=== PATIENT | male | born 1965 | race Caucasian/White ===

== ENCOUNTER 2017-10-21 07:25 | Emergency (ER) | payer MEDICARE, MEDICAID ==
[~2017-10-21] VITALS: Ht 172.7 cm; Wt 75.0 kg
[2017-10-21 07:30] VITALS: BP 154/87; PULSE 82; RESP 16; TEMP 97; O2SAT 100
[2017-10-21] MEDS ORDERED: CYCL10TA PO (07:44)
[2017-10-21] MEDS ORDERED: IBUP1TAB7 PO (07:44)
--- NOTE | 2017-10-21 07:44 | PD ---
HPI Chief Complaint: Back/ Neck Pain or Injury Time Seen by Provider: 07:36 Travel History International Travel<30 days: No Contact w/Intl Traveler<30days: No Traveled to known affect area: No History of Present Illness HPI Patient is a 52-year-old male presenting to the emergency department for evaluation of low back pain. Patient states he was walking down the stairs carrying an object this morning when he tripped, tweaking his back. He did not fall onto his back. He is ambulatory. He denies any numbness, tingling, weakness. He denies any bladder or bowel incontinence, no saddle paresthesia. Patient has not taken any medications to alleviate the pain. He states the incident occurred a few hours ago. Symptom onset was sudden, symptoms are mild in nature. There are no alleviating factors however patient has not done anything to alleviate his symptoms prior to coming to the emergency department. [facility] Past Medical History Arthritis: Yes Social History Tobacco Use: No Review of Systems Except as stated in HPI: all other systems reviewed are Neg Musculoskeletal: Positive: Myalgias, Cramping Physical Exam Narrative GENERAL: Well-developed, well-nourished, alert male. Presenting in no acute distress. SKIN: Warm and dry. HEAD: Atraumatic. Normocephalic. EYES: Pupils equal and round. No scleral icterus. No injection or drainage. ENT: No nasal bleeding or discharge. Mucous membranes pink and moist. NECK: Trachea midline. No JVD. CARDIOVASCULAR: Regular rate and rhythm. RESPIRATORY: No accessory muscle use. Clear to auscultation. Breath sounds equal bilaterally. GASTROINTESTINAL: Abdomen soft, non-tender, nondistended. Hepatic and splenic margins not palpable. MUSCULOSKELETAL: Extremities without clubbing, cyanosis, or edema. No obvious deformities. Mild tenderness to palpation paraspinal musculature and lumbar region bilaterally. No spinal tenderness or step-off noted. NEUROLOGICAL: Awake and alert. No obvious cranial nerve deficits. Motor grossly within normal limits. Five out of 5 muscle strength in the arms and legs. Normal speech. PSYCHIATRIC: Appropriate mood and affect; insight and judgment normal. Data Data Last Documented VS Vital Signs Date Time Temp Pulse Resp B/P (MAP) Pulse Ox O2 Delivery O2 Flow Rate FiO2 10/21/17 07:30 97.0 82 16 154/87 (109) 100 MDM Medical Decision Making Medical Screen Exam Complete: Yes Emergency Medical Condition: Yes Interpretation(s) Vital Signs Date Time Temp Pulse Resp B/P (MAP) Pulse Ox O2 Delivery O2 Flow Rate FiO2 10/21/17 07:30 97.0 82 16 154/87 (109) 100 Differential Diagnosis Strain versus spasm versus radiculopathy versus other Narrative Course Patient is well-appearing 52-year-old male presenting to emerge department for evaluation of 3 hours of low back pain after tripping this morning. There are no focal deficits on exam. Exam is consistent with muscular skeletal strain. Patient will be provided with a prescription for ibuprofen and Flexeril. He was encouraged to apply warm heat to affected area, continue range of motion exercises, avoid bed rest and avoid exacerbating activities. He was encouraged to follow-up with a primary doctor at the [facility]. He verbalized understanding of these instructions. Patient stable for discharge. Diagnosis Primary Impression: Lumbar strain Qualified Codes: S39.012A - Strain of muscle, fascia and tendon of lower back , initial encounter Referrals: [facility] Patient Instructions: Acute Low Back Pain (ED), General Instructions Additional Instructions: Apply warm moist heat to affected area, continue range of motion exercises, avoid bed rest, avoid exacerbating activity Take medications as needed and as directed for pain Follow-up with your primary doctor or at the [facility] Return to emergency department for any new or worsening symptoms Med/Other Pt SpecificInfo: Prescription(s) given Scripts Cyclobenzaprine (Flexeril) 10 Mg Tab 10 MG PO TID Y for MUSCLE SPASM, #30 TAB 0 Refills Prov: Kayla Giron 10/21/17 Ibuprofen (Ibuprofen) 800 Mg Tab 800 MG PO Q6HR Y for PAIN, #40 TAB 0 Refills Prov: Kayla Giron 10/21/17 Disposition: 01 DISCHARGE HOME Condition: Stable Kayla Giron Oct 21, 2017 07:44
== END 2017-10-21 08:14 | disposition home or self-care (01) ==
LOC: NEPD 07:25
DX: S39.012A Strain of muscle, fascia and tendon of lower back, initial encounter (principal); W18.40XA Slipping, tripping and stumbling without falling, unspecified, initial encounter; Y93.01 Activity, walking, marching and hiking
CPT/HCPCS: 99283